=== PATIENT | female | born 1965 | race Caucasian/White ===

== ENCOUNTER 2017-04-15 21:13 | Emergency (ER) | payer OTHER ==
[~2017-04-15] VITALS: Ht 165.1 cm; Wt 65.0 kg
[~2017-04-15 21:13] MED LIST: ACYC400T PO; BUTATAB6 PO; DIAZ2 PO
[2017-04-15 21:17] VITALS: BP 127/83; PULSE 78; RESP 22; TEMP 97.5; O2SAT 100
[2017-04-15] MEDS ORDERED: VYVA50CA3 PO (22:03)
[2017-04-15] MEDS ORDERED: TRAZ100T6 PO (22:03)
[2017-04-15] MEDS ORDERED: VIIB40TA PO (22:03)
[2017-04-15] MEDS ORDERED: LURA40 PO (22:03)
--- NOTE | 2017-04-15 22:03 | PD ---
Physical Exam Date Seen by Provider: Apr 15, 2017 Time Seen by Provider: 22:01 Data Data Last Documented VS Vital Signs Date Time Temp Pulse Resp B/P (MAP) Pulse Ox O2 Delivery O2 Flow Rate FiO2 04/15/17: 97.5 78 22 127/83 (98) 100 Orders Orders Electrocardiogram (04/15/17 21:24) Basic Metabolic Panel (Bmp) (04/15/17 21:24) Ckmb (Isoenzyme) Profile (04/15/17 21:24) Complete Blood Count With Diff (04/15/17 21:24) Magnesium (Mg) (04/15/17 21:24) Prothrombin Time / Inr (Pt) (04/15/17 21:24) Act Partial Throm Time (Ptt) (04/15/17 21:24) Troponin I (04/15/17 21:24) Chest, Single Ap (04/15/17 21:24) Ecg Monitoring (04/15/17 21:24) Bilateral Bp Monitoring (04/15/17 21:24) Iv Access Insert/Monitor (04/15/17 21:24) Oximetry (04/15/17 21:24) Oxygen Administration (04/15/17 21:24) MDM Supervised Visit with MORRIS: No Narrative Course 51 YO F with PMH of bipolar with complaint of SOB and CP, radiating to the shoulders bilaterally. Onset ~930pm, at rest. Described as sharp, accompanied by numbness and tingling. Never had an episode like this before. Vitals reviewed. Patient seen in triage, awaiting bed placement. Jyoti Nagy Apr 15, 2017 22:03
[2017-04-15 22:31] LABS: AUTOMATED NEUTROPHIL # 4.5 TH/MM3 (1.8-7.7); BASOPHIL # 0.1 TH/MM3 (0-0.2); EOSINOPHIL # 0.2 TH/MM3 (0-0.4); EOSINOPHIL % 2.2 % (0.0-4.0); HEMATOCRIT 34.2 % (35.0-46.0); HEMO FLAGS DIFF FINAL; LYMPH % 36.9 % (9.0-44.0); LYMPHOCYTE # 3.3 TH/MM3 (1.0-4.8); MEAN CELL VOLUME 88.5 FL (80.0-100.0); MEAN CORPUSCULAR HEMOGLOBIN 30.2 PG (27.0-34.0); MEAN CORPUSCULAR HGB CONC 34.1 % (32.0-36.0); MONO % 9.8 % (0.0-8.0); NEUT % 50.1 % (16.0-70.0); PLATELET COUNT 314 TH/MM3 (150-450); RED BLOOD COUNT 3.87 MIL/MM3 (4.00-5.30); RED CELL DISTRIBUTION WIDTH 12.7 % (11.6-17.2)
--- NOTE | 2017-04-15 22:42 | PD ---
HPI Chief Complaint: Chest Pain Time Seen by Provider: 22:17 Travel History International Travel<30 days: No Contact w/Intl Traveler<30days: No Traveled to known affect area: No History of Present Illness HPI Patient is a 51-year-old female who presents to emergency room with complaints of chest pain. Patient reports that her only medical history of anxiety attacks. Patient reports that tonight, she began to have chest pain, reports that chest pain was located her right breast under her right armpit, reports that the pain radiated across her chest. Patient reports the chest pain felt like a tight sensation throughout her chest with associated shortness of breath. Patient reports that she felt tingling sensation to her face to her neck down her whole body when chest pain began. Patient denies any cardiac disease, denies history of hypertension or hyperlipidemia. No family history of early CAD or NM. Patient reports that the only medical problems she has is anxiety. Reports that when she has anxiety attacks, they are usually associated with an event - reports that there was nothing that would have caused her to have an anxiety attack today. patient reports that she does smoke marijuana, does not use control pills. No history of PE/DVT. NO recent travels. No risk factors for PE PFSH Past Medical History Bipolar Disorder: Yes Anxiety: Yes Depression: Yes Cancer: No Cardiovascular Problems: No Endocrine: No Genitourinary: No Immune Disorder: No Implanted Vascular Access Dvce: Yes Musculoskeletal: No Neurologic: No Reproductive: No Respiratory: No Tetanus Vaccination: < 5 Years ?: Not Past Surgical History Surgical History: No Previous Surgery Social History Alcohol Use: Yes Tobacco Use: No Substance Use: Yes (cocaine/marijuana) Allergies-Medications (Allergen,Severity, Reaction): Coded Allergies: No Known Allergies (Unverified , 06/15/15) Reported Meds & Prescriptions Reported Meds & Active Scripts Active Reported Latuda (Lurasidone) 40 Mg Tab 40 Mg PO DAILY Trazodone (Trazodone HCl) 100 Mg Tablet 100 Mg PO HS Viibryd (Vilazodone) 40 Mg Tab 40 Mg PO DAILY Vyvanse (Lisdexamfetamine Dimesylate) 50 Mg Cap 50 Mg PO DAILY Jrztaxzjwx-Qwqfkuobzgjbi-Ynojufym 50-325-40 Mg Tab 1 Tab PO Q6HR PRN Do not exceed 6 tablets/day. Review of Systems General / Constitutional: No: Fever Eyes: No: Visual changes HENT: No: Headaches Cardiovascular: Positive: Chest Pain or Discomfort, Palpitations, Tachycardia, Diaphoresis Respiratory: Positive: Shortness of Breath Gastrointestinal: No: Abdominal Pain Genitourinary: No: Dysuria Musculoskeletal: No: Pain Skin: No Rash Neurologic: No: Weakness Psychiatric: No: Depression Endocrine: No: Polydipsia Hematologic/Lymphatic: No: Easy Bruising Physical Exam Narrative GENERAL: mild distress SKIN: Focused skin assessment warm/dry. HEAD: Atraumatic. Normocephalic. EYES: Pupils equal and round. No scleral icterus. No injection or drainage. ENT: No nasal bleeding or discharge. Mucous membranes pink and moist. NECK: Trachea midline. No JVD. CARDIOVASCULAR: Regular rate and rhythm. No murmur appreciated. RESPIRATORY: No accessory muscle use. Clear to auscultation. Breath sounds equal bilaterally. GASTROINTESTINAL: Abdomen soft, non-tender, nondistended. Hepatic and splenic margins not palpable. MUSCULOSKELETAL: No obvious deformities. No clubbing. No cyanosis. No edema. NEUROLOGICAL: Awake and alert. No obvious cranial nerve deficits. Motor grossly within normal limits. Normal speech. PSYCHIATRIC:.= Patient anxious on exam Data Data Last Documented VS Vital Signs Date Time Temp Pulse Resp B/P (MAP) Pulse Ox O2 Delivery O2 Flow Rate FiO2 04/15/17 23:08 100 04/15/17 22:37 Nasal Cannula 2.00 04/15/17 22:32 88 20 04/15/17:17 97.5 Orders Orders Electrocardiogram (04/15/17 21:24) Basic Metabolic Panel (Bmp) (04/15/17 21:24) Ckmb (Isoenzyme) Profile (04/15/17 21:24) Complete Blood Count With Diff (04/15/17 21:24) Magnesium (Mg) (04/15/17 21:24) Prothrombin Time / Inr (Pt) (04/15/17 21:24) Act Partial Throm Time (Ptt) (04/15/17 21:24) Troponin I (04/15/17 21:24) Chest, Single Ap (04/15/17 21:24) Ecg Monitoring (04/15/17 21:24) Bilateral Bp Monitoring (04/15/17 21:24) Iv Access Insert/Monitor (04/15/17 21:24) Oximetry (04/15/17 21:24) Oxygen Administration (04/15/17 21:24) Ed Urine Pregnancytest Poc (04/15/17 22:31) Lorazepam Inj (Ativan Inj) (04/15/17 22:45) D-Dimer (04/15/17 22:31) Sodium Chlor 0.9% 1000 Ml Inj (Ns 1000 M (04/15/17 22:45) CKMB (04/15/17 21:38) CKMB% (04/15/17 21:38) Potassium Chloride (Kcl) (04/16/17 00:15) Labs Laboratory Tests Test 04/15/17 21:38 04/15/17 22:50 White Blood Count 9.0 TH/MM3 Red Blood Count 3.87 MIL/MM3 Hemoglobin 11.7 GM/DL Hematocrit 34.2 % Mean Corpuscular Volume 88.5 FL Mean Corpuscular Hemoglobin 30.2 PG Mean Corpuscular Hemoglobin Concent 34.1 % Red Cell Distribution Width 12.7 % Platelet Count 314 TH/MM3 Mean Platelet Volume 7.8 FL Neutrophils (%) (Auto) 50.1 % Lymphocytes (%) (Auto) 36.9 % Monocytes (%) (Auto) 9.8 % Eosinophils (%) (Auto) 2.2 % Basophils (%) (Auto) 1.0 % Neutrophils # (Auto) 4.5 TH/MM3 Lymphocytes # (Auto) 3.3 TH/MM3 Monocytes # (Auto) 0.9 TH/MM3 Eosinophils # (Auto) 0.2 TH/MM3 Basophils # (Auto) 0.1 TH/MM3 CBC Comment DIFF FINAL Differential Comment Prothrombin Time 9.5 SEC Prothromb Time International Ratio 0.9 RATIO Activated Partial Thromboplast Time 28.9 SEC Blood Urea Nitrogen 10 MG/DL Creatinine 1.02 MG/DL Random Glucose 79 MG/DL Calcium Level 8.9 MG/DL Magnesium Level 2.3 MG/DL Sodium Level 138 MEQ/L Potassium Level 3.4 MEQ/L Chloride Level 104 MEQ/L Carbon Dioxide Level 23.2 MEQ/L Anion Gap 11 MEQ/L Estimat Glomerular Filtration Rate 57 ML/MIN Total Creatine Kinase 154 U/L Creatine Kinase MB 2.0 NG/ML Troponin I LESS THAN 0.02 NG/ML D-Dimer Quantitative (PE/DVT) LESS THAN 0.19 MG/L FEU MDM Medical Decision Making Medical Screen Exam Complete: Yes Emergency Medical Condition: Yes Interpretation(s) EKG at 2129: NSR at 78bpm, qt/qtc: 384/417, no acute st or t wave changes Vital Signs Date Time Temp Pulse Resp B/P (MAP) Pulse Ox O2 Delivery O2 Flow Rate FiO2 04/15/17 21:17 97.5 78 22 127/83 (98) 100 Differential Diagnosis Differential includes ACS, arrhythmia, drug abuse, PE, anxiety reaction Narrative Course 51-year-old female who presents to emergency room with complaints of chest pain. Chest pain is located to her right breast and radiates throughout her chest and is associated with tightness, nausea and palpitations. Patient with no history of ACS/CAD in the past. Patient was placed on a child monitor upon arrival to the emergency room. Lab work including cardiac enzymes as well as d-dimer ordered. Patient extremely anxious on exam, IV Ativan ordered as well. Plan to monitor patient. Vital Signs Date Time Temp Pulse Resp B/P (MAP) Pulse Ox O2 Delivery O2 Flow Rate FiO2 04/15/17 23:08 100 04/15/17 22:37 100 Nasal Cannula 2.00 04/15/17 22:32 88 20 100 Room Air 04/15/17 21:17 97.5 78 22 127/83 (98) 100 Laboratory Tests Test 04/15/17 21:38 04/15/17 22:50 White Blood Count 9.0 TH/MM3 (4.0-11.0) Red Blood Count 3.87 MIL/MM3 (4.00-5.30) Hemoglobin 11.7 GM/DL (11.6-15.3) Hematocrit 34.2 % (35.0-46.0) Mean Corpuscular Volume 88.5 FL (80.0-100.0) Mean Corpuscular Hemoglobin 30.2 PG (27.0-34.0) Mean Corpuscular Hemoglobin Concent 34.1 % (32.0-36.0) Red Cell Distribution Width 12.7 % (11.6-17.2) Platelet Count 314 TH/MM3 (150-450) Mean Platelet Volume 7.8 FL (7.0-11.0) Neutrophils (%) (Auto) 50.1 % (16.0-70.0) Lymphocytes (%) (Auto) 36.9 % (9.0-44.0) Monocytes (%) (Auto) 9.8 % (0.0-8.0) Eosinophils (%) (Auto) 2.2 % (0.0-4.0) Basophils (%) (Auto) 1.0 % (0.0-2.0) Neutrophils # (Auto) 4.5 TH/MM3 (1.8-7.7) Lymphocytes # (Auto) 3.3 TH/MM3 (1.0-4.8) Monocytes # (Auto) 0.9 TH/MM3 (0-0.9) Eosinophils # (Auto) 0.2 TH/MM3 (0-0.4) Basophils # (Auto) 0.1 TH/MM3 (0-0.2) CBC Comment DIFF FINAL Differential Comment Prothrombin Time 9.5 SEC (9.8-11.6) Prothromb Time International Ratio 0.9 RATIO Activated Partial Thromboplast Time 28.9 SEC (24.3-30.1) Blood Urea Nitrogen 10 MG/DL (7-18) Creatinine 1.02 MG/DL (0.50-1.00) Random Glucose 79 MG/DL (74-106) Calcium Level 8.9 MG/DL (8.5-10.1) Magnesium Level 2.3 MG/DL (1.5-2.5) Sodium Level 138 MEQ/L (136-145) Potassium Level 3.4 MEQ/L (3.5-5.1) Chloride Level 104 MEQ/L (98-107) Carbon Dioxide Level 23.2 MEQ/L (21.0-32.0) Anion Gap 11 MEQ/L (5-15) Estimat Glomerular Filtration Rate 57 ML/MIN (>89) Total Creatine Kinase 154 U/L (26-192) Creatine Kinase MB 2.0 NG/ML (0.5-3.6) Troponin I LESS THAN 0.02 NG/ML D-Dimer Quantitative (PE/DVT) LESS THAN 0.19 MG/L FEU Patient denies cocaine abuse - reports that she has used it in the past but not recently. xray of chest neg ce x 1 neg ddimer neg Patient reports that she is feeling much better at this time. Patient now reports that she is stressed out as she has been having family problems as well as financial difficulties. Reports that this could have lead to her stress. Reports that she is feeling 100% better at this time. I did offer patient observation in the chest pain unit overnight, patient refuses this and would like to be discharged home. I do think that this is reasonable given her atypical chest pain symptoms. She understands that she may return to ER at any time for re-evaluation of her symptoms. She will follow up with her pcp and will return to ER as needed Diagnosis Primary Impression: Chest pain Additional Impression: Anxiety reaction Patient Instructions: General Instructions Additional Instructions: Please follow up with your primary care doctor in 2-3 days Return to ER if symptoms worsen or persist Return to ER as needed Disposition: 01 DISCHARGE HOME Condition: Stable Ana Ndiaye DO Apr 15, 2017 22:42
--- NOTE | 2017-04-15 22:42 | HHI.HP ---
HPI Service Critical Care Medicine Primary Care Physician Non-Staff Admission Diagnosis Diagnosis: Travel History International Travel<30 Days: No Contact w/Intl Traveler <30 Da: No Traveled to Known Affected Are: No History of Present Illness Please remove the, it was started in an error Past Family Social History Allergies: Coded Allergies: No Known Allergies (Unverified , 06/15/15) Physical Exam Vital Signs Vital Signs Date Time Temp Pulse Resp B/P (MAP) Pulse Ox O2 Delivery O2 Flow Rate FiO2 04/15/17 22:37 100 Nasal Cannula 2.00 04/15/17 22:32 88 20 100 Room Air 04/15/17 21:17 97.5 78 22 127/83 (98) 100 Laboratory Laboratory Tests Test 04/15/17 21:38 White Blood Count 9.0 Red Blood Count 3.87 Hemoglobin 11.7 Hematocrit 34.2 Mean Corpuscular Volume 88.5 Mean Corpuscular Hemoglobin 30.2 Mean Corpuscular Hemoglobin Concent 34.1 Red Cell Distribution Width 12.7 Platelet Count 314 Mean Platelet Volume 7.8 Neutrophils (%) (Auto) 50.1 Lymphocytes (%) (Auto) 36.9 Monocytes (%) (Auto) 9.8 Eosinophils (%) (Auto) 2.2 Basophils (%) (Auto) 1.0 Neutrophils # (Auto) 4.5 Lymphocytes # (Auto) 3.3 Monocytes # (Auto) 0.9 Eosinophils # (Auto) 0.2 Basophils # (Auto) 0.1 CBC Comment DIFF FINAL Differential Comment Result Diagram: 04/15/172137 Caprini VTE Risk Assessment Caprini VTE Risk Assessment: No/Low Risk (score <= 1) Caprini Risk Assessment Model Point Value = 1 Point Value = 2 Point Value = 3 Point Value = 5 Age 41-60 Minor surgery BMI > 25 kg/m2 Swollen legs Varicose veins or History of unexplained or recurrent spontaneous Oral contraceptives or hormone replacement Sepsis (< 1 month) Serious lung disease, including pneumonia (< 1 month) Abnormal pulmonary function Acute myocardial infarction Congestive heart failure (< 1 month) History of inflammatory bowel disease Medical patient at bed rest Age 61-74 Arthroscopic surgery Major open surgery (> 45 min) Laparoscopic surgery (> 45 min) Malignancy Confined to bed (> 72 hours) Immobilizing plaster cast Central venous access Age >= 75 History of VTE Family history of VTE Factor V Leiden Prothrombin [id number] Lupus anticoagulant Anticardiolipin antibodies Elevated serum homocysteine Heparin-induced thrombocytopenia Other congenital or acquired thrombophilia Stroke (< 1 month) Elective arthroplasty Hip, pelvis, or leg fracture Acute spinal cord injury (< 1 month) Prophylaxis Regimen Total Risk Factor Score Risk Level Prophylaxis Regimen 0-1 Low Early ambulation 2 Moderate Order ONE of the following: *Sequential Compression Device (SCD) *Heparin 5000 units SQ BID 3-4 Higher Order ONE of the following medications: *Heparin 5000 units SQ TID *Enoxaparin/Lovenox 40 mg SQ daily (WT < 150 kg, CrCl > 30 mL/min) *Enoxaparin/Lovenox 30 mg SQ daily (WT < 150 kg, CrCl > 10-29 mL/min) *Enoxaparin/Lovenox 30 mg SQ BID (WT < 150 kg, CrCl > 30 mL/min) AND/OR *Sequential Compression Device (SCD) 5 or more Highest Order ONE of the following medications: *Heparin 5000 units SQ TID (Preferred with Epidurals) *Enoxaparin/Lovenox 40 mg SQ daily (WT < 150 kg, CrCl > 30 mL/min) *Enoxaparin/Lovenox 30 mg SQ daily (WT < 150 kg, CrCl > 10-29 mL/min) *Enoxaparin/Lovenox 30 mg SQ BID (WT < 150 kg, CrCl > 30 mL/min) AND *Sequential Compression Device (SCD) José Miguel Beach MD Apr 15, 2017 22:42
[2017-04-15 22:44] LABS: APTT (PATIENT) 28.9 SEC (24.3-30.1); INTERNATIONAL NORMALIZED RATIO 0.9 RATIO; PROTHROMBIN TIME - PATIENT 9.5 SEC (9.8-11.6)
[2017-04-15] MEDS ORDERED: SODIUM CHLOR 0.9% 1000 ML INJ 1,000 ML IV ONE (22:45)
[2017-04-15] MEDS ORDERED: LORazepam 2 MG/ML VIAL IV PUSH ONE (22:45)
[2017-04-15 22:51] LABS: ANION GAP 11 MEQ/L (5-15); BICARBONATE 23.2 MEQ/L (21.0-32.0); BLOOD UREA NITROGEN 10 MG/DL (7-18); CHLORIDE 104 MEQ/L (98-107); GLOMERULAR FILTRATION RATE 57 ML/MIN (>89); MAGNESIUM 2.3 MG/DL (1.5-2.5); POTASSIUM 3.4 MEQ/L (3.5-5.1); SODIUM (NA) 138 MEQ/L (136-145)
[2017-04-15 22:55] LABS: CREATINE KINASE 154 U/L (26-192)
--- NOTE | 2017-04-15 22:55 | RADRPT ---
EXAM DATE/TIME: 04/15/2017 22:49 [facility] COMPARISON: No previous studies available for comparison. INDICATIONS : Short of breath tonight. MEDICAL HISTORY : None. SURGICAL HISTORY : None. ENCOUNTER: Initial ACUITY: 1 day PAIN SCORE: 2/10 LOCATION: Bilateral chest FINDINGS: Portable AP view of the chest demonstrates a normal-sized cardiac silhouette. No effusion, consolidat ion, or pneumothorax is visualized. The bones and soft tissues demonstrate no acute abnormality. CONCLUSION: No acute cardiopulmonary abnormality is identified. Obie Ovalle MD on April 15, 2017 at 22:53 Board Certified Radiologist. This report was verified electronically.
[2017-04-15 23:08] VITALS: O2SAT 100
[2017-04-16] MEDS ORDERED: POTASSIUM CHLORIDE 10 MEQ CONTROLLED RELEASE TAB PO ONE (00:15)
[2017-04-16 01:11] VITALS: BP 110/75
--- NOTE | 2017-04-16 19:44 | EKG ---
Date Performed: 04/15/2017 Time Performed: 21:29:20 PTAGE: 51 years EKG: Sinus rhythm NORMAL ECG PREVIOUS TRACING : 08/16/2016 07.41 Compared to prior tracing no significant change DOCTOR: Jered Tejada Interpretating Date/Time 04/16/2017 19:43:49
== END 2017-04-16 01:12 | disposition home or self-care (01) ==
LOC: NEPC 21:13
DX: F41.1 Generalized anxiety disorder (principal); R07.9 Chest pain, unspecified
CPT/HCPCS: 71010; 80048; 82550; 82552; 83735; 84484; 85025; 85379; 85610; 85730; 93005; 96374; 99285; J2060; J7030

== ENCOUNTER 2017-05-25 11:58 | Emergency (ER) | payer OTHER ==
[~2017-05-25 11:58] MED LIST changes: -ACYC400T PO; -DIAZ2 PO; +LURA40 PO; +TRAZ100T6 PO; +VIIB40TA PO; +VYVA50CA3 PO
[2017-05-25 12:01] VITALS: BP 137/62; PULSE 76; RESP 16; TEMP 98.4; O2SAT 97
[2017-05-25] MEDS ORDERED: BLAC1CAP2 (12:22)
--- NOTE | 2017-05-25 12:35 | PD ---
HPI Chief Complaint: Bleeding Time Seen by Provider: 12:24 Travel History International Travel<30 days: No Contact w/Intl Traveler<30days: No Traveled to known affect area: No History of Present Illness HPI 51-year-old female here for evaluation of heavy vaginal bleeding and lower pelvic cramping for the last 6 days. She reports that she was seen by her OB/ CARTRIDGE [employer] physician Dr. Clark last week, and the bleeding started the day after. She has tried to contact him, however has been unsuccessful in making another appointment. She reports that her menstrual periods have been irregular lately. She has had heavy bleeding in the past, but bleeding has never been this heavy. She also notices passing large clots. Pelvic cramping is lower and radiates to her back, is moderate. She denies urinary symptoms. She is in a monogamous relationship. No history of adenopathy. No antiplatelet or anticoagulant use. She has been feeling weak and lightheaded as well. PFSH Past Medical History Bipolar Disorder: Yes Anxiety: Yes Depression: Yes Cancer: No Cardiovascular Problems: No Endocrine: No Gastrointestinal Disorders: No Genitourinary: No Immune Disorder: No Implanted Vascular Access Dvce: Yes Musculoskeletal: No Neurologic: No Reproductive: No Respiratory: No ?: Not LMP: 6 days Past Surgical History Other Surgery: Yes Social History Alcohol Use: Yes Tobacco Use: No Substance Use: Yes (cocaine/marijuana) Allergies-Medications (Allergen,Severity, Reaction): Coded Allergies: No Known Allergies (Unverified , 06/15/15) Reported Meds & Prescriptions Reported Meds & Active Scripts Active Reported Estroven Multi-Symptom Me (Black Cohosh-Soy Isoflavones-M) 1 Cap Latuda (Lurasidone) 40 Mg Tab 40 Mg PO DAILY Trazodone (Trazodone HCl) 100 Mg Tablet 100 Mg PO HS Viibryd (Vilazodone) 40 Mg Tab 40 Mg PO DAILY Vyvanse (Lisdexamfetamine Dimesylate) 50 Mg Cap 50 Mg PO DAILY Xgvzaaiqgx-Ylkaiicqmaxel-Iylmynmr 50-325-40 Mg Tab 1 Tab PO Q6HR PRN Do not exceed 6 tablets/day. Review of Systems Except as stated in HPI: all other systems reviewed are Neg Physical Exam Narrative GENERAL: Well-developed, well-nourished, comfortable, no apparent distress. SKIN: Focused skin assessment warm/dry. No pallor. HEAD: Atraumatic. Normocephalic. EYES: Pupils equal and round. No scleral icterus. No injection or drainage. No conjunctival pallor. ENT: Mucous membranes pink and moist. CARDIOVASCULAR: Regular rate and rhythm. RESPIRATORY: No accessory muscle use. Clear to auscultation. Breath sounds equal bilaterally. GASTROINTESTINAL: Abdomen soft, non-tender, nondistended. 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 Normal external genitalia. Moderate amount of blood in the vaginal vault coming from the cervical os. No cervical masses. No intravaginal or cervical lacerations. MUSCULOSKELETAL: No obvious deformities. No clubbing. No cyanosis. No edema. NEUROLOGICAL: Awake and alert. No obvious cranial nerve deficits. Motor grossly within normal limits. Normal speech. PSYCHIATRIC: Appropriate mood and affect; insight and judgment normal. Data Data Last Documented VS Vital Signs Date Time Temp Pulse Resp B/P (MAP) Pulse Ox O2 Delivery O2 Flow Rate FiO2 05/25/17 12:29 18 99 Room Air 05/25/17 12:01 98.4 76 137/62 (87) Orders Orders Complete Blood Count With Diff (05/25/17 12:31) Gc And Chlamydia Pcr (05/25/17 12:31) Wet Prep Profile (05/25/17 12:31) Beta Hcg (Quant/Titer) (05/25/17 12:31) Prothrombin Time / Inr (Pt) (05/25/17 12:31) Act Partial Throm Time (Ptt) (05/25/17 12:31) Ketorolac Inj (Toradol Inj) (05/25/17 12:45) Tramadol (Ultram) (05/25/17 13:30) Labs Laboratory Tests Test 05/25/17 12:43 05/25/17 12:50 White Blood Count 9.1 TH/MM3 Red Blood Count 4.08 MIL/MM3 Hemoglobin 12.3 GM/DL Hematocrit 36.7 % Mean Corpuscular Volume 89.9 FL Mean Corpuscular Hemoglobin 30.1 PG Mean Corpuscular Hemoglobin Concent 33.5 % Red Cell Distribution Width 13.2 % Platelet Count 293 TH/MM3 Mean Platelet Volume 7.3 FL Neutrophils (%) (Auto) 64.7 % Lymphocytes (%) (Auto) 23.1 % Monocytes (%) (Auto) 8.6 % Eosinophils (%) (Auto) 2.3 % Basophils (%) (Auto) 1.3 % Neutrophils # (Auto) 5.9 TH/MM3 Lymphocytes # (Auto) 2.1 TH/MM3 Monocytes # (Auto) 0.8 TH/MM3 Eosinophils # (Auto) 0.2 TH/MM3 Basophils # (Auto) 0.1 TH/MM3 CBC Comment DIFF FINAL Differential Comment Prothrombin Time 9.4 SEC Prothromb Time International Ratio 0.9 RATIO Activated Partial Thromboplast Time 26.9 SEC Human Chorionic Gonadotropin, Quant LESS THAN 1 MIU/ML Clue Cells (Wet Prep) NONE SEEN Vaginal Trichomonas (Wet Prep) NONE SEEN Vaginal Yeast (Wet Prep) NONE SEEN MDM Medical Decision Making Medical Screen Exam Complete: Yes Emergency Medical Condition: Yes Differential Diagnosis Menorrhagia, anemia, /ectopic /miscarriage, endometrial CA Narrative Course Vital signs show heart rate 76, blood pressure 137/62, pulse ox 99% on room air , oral temp of 98.4F. CBC: WBC 9.1, hemoglobin 12.3, hematocrit 36.7, platelets 293. Beta hCG is negative. Coags are normal. Wet prep is negative for yeast, negative for clue cells, negative for Trichomonas. Patient has mild suprapubic tenderness. She has no rebound or guarding. I do not believe she has an acute intra-abdominal process/surgical process to warrant imaging at this time. This is likely menstrual cramping secondary to menorrhagia. Plan is to start her on Provera and have her follow-up with her numerical control programmer this week. She was informed on when to return to the emergency department. She verbalizes understanding and agreement with plan. Diagnosis Primary Impression: Menorrhagia Qualified Codes: N92.4 - Excessive bleeding in the premenopausal period Referrals: Primary Care Physician 3 days Additional Instructions: Follow-up with your numerical control programmer this week. Return to the emergency department for worsening symptoms or any other concerns as discussed. Scripts Tramadol (Tramadol) 50 Mg Tab 50 MG PO Q8H Y for PAIN, #10 TAB 0 Refills Prov: Gurjit Moon MD 05/25/17 Medroxyprogesterone Acetate (Provera) 10 Mg Tab 10 MG PO DAILY for Uterine bleeding, #10 TAB 0 Refills Start day 16 Prov: Gurjit Moon MD 05/25/17 Disposition: 01 DISCHARGE HOME Condition: Stable Gurjit Moon MD May 25, 2017 12:35
[2017-05-25] MEDS ORDERED: KETOROLAC TROMETHAMINE 30 MG/ML (IVP) VIAL IV PUSH ONE (12:45)
[2017-05-25 13:04] LABS: AUTOMATED NEUTROPHIL # 5.9 TH/MM3 (1.8-7.7); BASOPHIL # 0.1 TH/MM3 (0-0.2); BASOPHIL % 1.3 % (0.0-2.0); EOSINOPHIL # 0.2 TH/MM3 (0-0.4); EOSINOPHIL % 2.3 % (0.0-4.0); HEMATOCRIT 36.7 % (35.0-46.0); HEMO FLAGS DIFF FINAL; LYMPH % 23.1 % (9.0-44.0); LYMPHOCYTE # 2.1 TH/MM3 (1.0-4.8); MEAN CELL VOLUME 89.9 FL (80.0-100.0); MEAN CORPUSCULAR HEMOGLOBIN 30.1 PG (27.0-34.0); MEAN CORPUSCULAR HGB CONC 33.5 % (32.0-36.0); MONO % 8.6 % (0.0-8.0); NEUT % 64.7 % (16.0-70.0); PLATELET COUNT 293 TH/MM3 (150-450); RED BLOOD COUNT 4.08 MIL/MM3 (4.00-5.30); RED CELL DISTRIBUTION WIDTH 13.2 % (11.6-17.2); WHITE BLOOD COUNT 9.1 TH/MM3 (4.0-11.0)
[2017-05-25 13:11] LABS: APTT (PATIENT) 26.9 SEC (24.3-30.1); INTERNATIONAL NORMALIZED RATIO 0.9 RATIO; PROTHROMBIN TIME - PATIENT 9.4 SEC (9.8-11.6)
[2017-05-25] MEDS ORDERED: traMADol HCL 50 MG TAB PO ONE (13:30)
[2017-05-25 13:31] LABS: BETA HCG QUANT LESS THAN 1 MIU/ML (0-5)
[2017-05-25] MEDS ORDERED: TRAM50TA PO (13:44)
[2017-05-25] MEDS ORDERED: PROV10TA PO (13:44)
== END 2017-05-25 14:03 | disposition home or self-care (01) ==
LOC: NEPD 11:58
DX: N92.4 Excessive bleeding in the premenopausal period (principal); R10.30 Lower abdominal pain, unspecified; R53.1 Weakness
CPT/HCPCS: 84702; 85025; 85610; 85730; 87210; 96374; 99284; J1885